=== PATIENT | female | born 1970 | race Caucasian/White ===

== ENCOUNTER → 2016-06-23 | Outpatient (CLI) | payer OTHER ==
--- NOTE | 2016-06-23 09:29 | MA ---
Diagnostic Digital Right Breast Mammogram June 23, 2016 Clinical History: Asymmetric opacities lateral and superior right breast on screening study June 10, 2016. Technique: Spot compression CC and MLO mammograms of the right breast are obtained along with a later al medial mammogram. Findings: The areas of parenchymal asymmetry described on the screening study resolve completely on a dditional spot compression views compatible with superimposed fibroglandular tissue. Impression: Negative additional mammographic views, right breast. BI-RADS 1. Recommendation: Routine annual screening mammography. [facility] will send a result letter to the patient. Negative mammography should not preclude additional workup of a clinically suspicious finding. The patient's information is entered into a reminder system with a target due date for her next mammo gram.
== END ==
LOC: FIMAGING 08:57
PROVIDERS: ATTEND Family Medicine
DX: R92.8 Other abnormal and inconclusive findings on diagnostic imaging of breast (principal)
CPT/HCPCS: G0206

== ENCOUNTER 2016-10-13 09:18 | Emergency (ER) | payer OTHER ==
[2016-10-13 09:24] VITALS: TEMP 97.5
--- NOTE | 2016-10-13 09:36 | CPEKG ---
Heart Rate: 80 RR Interval: 750 P-R Interval: 140 QRSD Interval: 84 QT Interval: 408 QTC Interval: 471 P Makanda: 34 QRS Makanda: 25 T Wave Makanda: 49 EKG Severity - NORMAL ECG - EKG Impression: SINUS RHYTHM Electronically Signed By: Bernardo Garcia 13-Oct-2016 09:47:32
[2016-10-13] MEDS ORDERED: LORazepam 2 MG/ML INJ IVP ONE (10:00)
--- NOTE | 2016-10-13 10:01 | EDPHY ---
H & P Stated Complaint: L shoulder/arm pain. Neg stress test 2 days ago. Source: Patient, Family, Old records - Personal History Current Tetanus Diphtheria and Acellular Pertussis (TDAP): Yes Tetanus Vaccine Date: WITHIN 10 YRS - Medical/Surgical History Hx Asthma: No Hx Chronic Respiratory Disease: No Hx Diabetes: No Hx Cardiac Disease: No Hx Renal Disease: No Hx Cirrhosis: No Hx Alcoholism: No Hx HIV/AIDS: No Hx Splenectomy or Spleen Trauma: No Other PMH: med hx-Hypertension, Colitis ,anxiety. surg-2 c-sect - Social History Smoking Status: Never smoked HPI/ROS: CHIEF COMPLAINT: Chest Pain HISTORY OF PRESENT ILLNESS: Patient complains of chest pain that started 8:00 a.m.. This is a left-sided chest pain. Pxyt-ey-tfkqzkyk pain. Radiates to the left neck, shoulder and arm. Some weakness of the arm. No headache. No neck pain. No abdominal urinary complaints. Some shortness of breath. No changes in vision. No difficulty with her speech. No unilateral complaints otherwise. Some improvement after taking 1 nitro sublingual 8:40 a.m.. Symptoms have improved but not resolved. They were not exertional. She has a history of chest pain over the past 2 months that has been worked up by umbrella mender Dr. Magallon. She is reportedly normal stress test and echo from earlier this week. No other associated complaints or modifying factors FAMILY HISTORY CARDIAC: Paternal grandmother at age 54 from heart attack. PRIOR CARDIAC WORKUP: Treadmill stress test and echo this week REVIEW OF SYSTEMS: Ten systems reviewed and are negative unless otherwise noted in the HPI EXAMINATION: General Appearance: Alert, no distress Head: normocephalic, atraumatic Eyes: Pupils equal and round, no conjunctival pallor or injection ENT, Mouth: Mucous membranes moist. Uvula midline. Neck: Normal inspection, supple, non-tender Respiratory: Lungs are clear to auscultation. No wheezing, rhonchi or crackles. Cardiovascular: Regular rate and rhythm. No murmur. Pulses intact distally. Gastrointestinal: Abdomen is soft and nontender Back: non-tender, no bony abnormalities Neurological: GCS 15. A&O, nonfocal, normal gait Skin: Warm and dry, no rash. No petechiae or purpura. Extremities: Nontender, no pedal edema. DVT examination is negative. Psychiatric: Mood and affect normal DIFFERENTIAL DIAGNOSES: Including but not limited to in no particular order: Acute Chest Pain, ACS, Stable Angina, Pneumonia, PE, duodenitis, gastritis, esophagitis, GERD MDM: 9:50 a.m. Left-sided chest pain that started at a.m.. This was while getting ready for work. It has improved but not resolved. It is not exertional. It does radiate to the left arm, shoulder and neck. Some minimal shortness of breath. Examination is benign. She was mildly tachycardic when I entered the room, but she attributes this to being anxious about the scenario. Vital signs normal I left the room. Stress test and echo earlier this week that we will obtain the results were. 11:00 a.m. Laboratory tests are negative including a negative troponin and negative D- dimer. Chest x-ray is pending. I discussed the case with the on-call umbrella mender Dr. Cosme. Informed him of the patient's history, recent stress test, recent echo and today's laboratory studies. He recommends a 2nd troponin at 3-4 hours from onset of chest pain, based on the time of onset. He does not feel that the patient needs to be admitted from a cardiology standpoint if this is negative. No further recommendations at this time. 11:15 a.m. I have notified the patient's of these findings and the recommendations of umbrella mender. She is comfortable with this plan. 1:30 p.m. Second troponin is negative. This was drawn for 4.5 hours after onset of pain. Patient is feeling well with no pain at this time. Per the recommendation of Cardiology, the patient be discharged home. I do agree that she is stable for discharge home, as does . We discussed return to the emergency department precautions. She is to contact Dr. Magallon for follow-up. She is to her return to the ER for any return of her symptoms. She is comfortable this plan and discharged home stable condition. EKG: Interpreted by Dr. Garcia Normal sinus rhythm. 80 beats per minute. No acute ischemia. SUPERVISION: Patient was evaluated in conjunction with the supervising physician. Please see their note for details. (Panda Baer) Constitutional: Initial Vital Signs Temperature (C) 97.5 F 10/13/16 09:22 Heart Rate 92 10/13/16 09:22 Respiratory Rate 18 10/13/16 09:22 Blood Pressure 141/97 H 10/13/16 09:22 O2 Sat (%) 98 10/13/16 09:22 O2 Delivery Mode Room Air Allergies/Adverse Reactions: Sulfa (Sulfonamide Antibiotics) Allergy (Mild, Verified 03/09/16 18:38) Rash Home Medications: Medication Instructions Recorded Aspirin [Aspirin 81mg (*)] 81 mg PO DAILY 10/13/16 FLUoxetine [PROzac] 10 mg PO 10/13/16 Hydrochlorothiazide [HCTZ (*)] 12.5 mg PO 10/13/16 Medical Decision Making - Diagnostics EKG Interpretation: 12-lead EKG interpreted by me; official reading is in trace master. My interpretation is sinus rhythm rate 80 no acute ischemic changes (Bernardo Garcia) Imaging Results: Imaging Impressions Chest X-Ray 10/13/16 09:50 Impression: No acute abnormality. Other Provider: PHYSICIAN DOCUMENTATION: The patient was evaluated and managed by the Physician Activities Specialist and myself. I have reviewed the chart and agree with the findings and plan of care as documented. In addition, I examined the patient myself at 1005 and 10 50. History confirmed as nontraumatic left-sided chest pain starting 8:00 a.m.. Physical findings as follows: Regular rate and rhythm without murmur. Labs reviewed, plans to discuss with her umbrella mender prior to disposition. I am the secondary supervising physician. (Bernardo Garcia) - Data Points Laboratory Results: Laboratory Results 10/13/16 09:50 10/13/16 09:50 10/13/16 10/13/16 10/13/16 12:37 09:50 09:50 WBC RBC Hgb Hct MCV MCH MCHC RDW Plt Count MPV Neut % (Auto) Lymph % (Auto) Dupage % (Auto) Eos % (Auto) Baso % (Auto) Nucleat RBC Rel Count Absolute Neuts (auto) Absolute Lymphs (auto) Absolute Monos (auto) Absolute Eos (auto) Absolute Basos (auto) Absolute Nucleated RBC Immature Gran % Immature Gran # PT INR APTT D-Dimer Sodium 138 mEq/L mEq/L (134-144) Potassium 3.2 mEq/L L mEq/L (3.5-5.2) Chloride 103 mEq/L mEq/L (97-110) Carbon Dioxide 26 mEq/l mEq/l (22-31) Anion Gap 9 mEq/L mEq/L (8-16) BUN 19 mg/dL mg/dL (7-23) Creatinine 0.7 mg/dL mg/dL (0.6-1.0) Estimated GFR > 60 Glucose 101 mg/dL H mg/dL (70-100) Calcium 9.6 mg/dL mg/dL (8.5-10.4) Troponin I < 0.012 ng/mL ng/mL < 0.012 ng/mL ng/mL (0-0.034) (0-0.034) NT-Pro-B Natriuret Pep 127 pg/mL H pg/mL (0-125) Lipase 94.0 IU/L IU/L (23-300) Beta HCG, Qual NEGATIVE 10/13/16 10/13/16 09:50 09:50 WBC 7.99 10^3/uL 10^3/uL (3.80-9.50) RBC 4.81 10^6/uL 10^6/uL (4.18-5.33) Hgb 14.4 g/dL g/dL (12.6-16.3) Hct 42.7 % % (38.0-47.0) MCV 88.8 fL fL (81.5-99.8) MCH 29.9 pg pg (27.9-34.1) MCHC 33.7 g/dL g/dL (32.4-36.7) RDW 14.3 % % (11.5-15.2) Plt Count 376 10^3/uL 10^3/uL (150-400) MPV 8.8 fL fL (8.7-11.7) Neut % (Auto) 50.5 % % (39.3-74.2) Lymph % (Auto) 35.3 % % (15.0-45.0) Dup[place] % (Auto) 11.5 % % (4.5-13.0) Eos % (Auto) 1.3 % % (0.6-7.6) Baso % (Auto) 1.0 % % (0.3-1.7) Nucleat RBC Rel Count 0.0 % % (0.0-0.2) Absolute Neuts (auto) 4.04 10^3/uL 10^3/uL (1.70-6.50) Absolute Lymphs (auto) 2.82 10^3/uL 10^3/uL (1.00-3.00) Absolute Monos (auto) 0.92 10^3/uL H 10^3/uL (0.30-0.80) Absolute Eos (auto) 0.10 10^3/uL 10^3/uL (0.03-0.40) Absolute Basos (auto) 0.08 10^3/uL 10^3/uL (0.02-0.10) Absolute Nucleated RBC 0.00 10^3/uL 10^3/uL (0-0.01) Immature Gran % 0.4 % % (0.0-1.1) Immature Gran # 0.03 10^3/uL 10^3/uL (0.00-0.10) PT 12.3 SEC SEC (12.0-15.0) INR 0.92 (0.83-1.16) APTT 24.9 SEC SEC (23.0-38.0) D-Dimer < 0.27 ug/mLFEU ug/mLFEU (0.00-0.50) Sodium Potassium Chloride Carbon Dioxide Anion Gap BUN Creatinine Estimated GFR Glucose Calcium Troponin I NT-Pro-B Natriuret Pep Lipase Beta HCG, Qual Medications Given: Discontinued Medications Lorazepam (Ativan Injection) 1 mg IVP EDNOW ONE Stop: 10/13/16 10:01 Last Admin: 10/13/16 10:07 Dose: 1 mg Departure - Departure Disposition: Home, Routine, Self-Care Clinical Impression: Chest pain Qualifiers: Chest pain type: unspecified Qualified Code(s): R07.9 - Chest pain, unspecified Hypertension Qualifiers: Hypertension type: essential hypertension Qualified Code(s): I10 - Essential ( primary) hypertension Condition: Good Instructions: Chest Pain (ED), Hypertension (ED) Additional Instructions: Follow-up with umbrella mender as discussed. Return to ER for any return of symptoms or worsening of symptoms. Referrals: Iliana Mcdonnell MD [Primary Care Provider] - As per Instructions Lashawn Magallon MD [Medical Doctor] - As per Instructions Stand Alone Forms: Airline Excuse
[2016-10-13 10:04] LABS: % IMMATURE GRANULYOCYTES 0.4 % (0.0-1.1); ABSOLUTE IMMATURE GRANULOCYTES 0.03 10^3/uL (0.00-0.10); ADD DIFF? NO; ADD MORPH? NO; ADD SCAN? NO; ATYPICAL LYMPHOCYTE FLAG 20 (0-99); FRAGMENT RBC FLAG 0 (0-99); HEMATOCRIT 42.7 % (38.0-47.0); HEMOGLOBIN 14.4 g/dL (12.6-16.3); LEFT SHIFT FLG 0 (0-99); LIPEMIA HEMOLYSIS FLAG 80 (0-99); MEAN CELL HEMOGLOBIN 29.9 pg (27.9-34.1); MEAN CELL HEMOGLOBIN CONCENTR. 33.7 g/dL (32.4-36.7); MEAN CELL VOLUME 88.8 fL (81.5-99.8); MEAN PLATELET VOLUME 8.8 fL (8.7-11.7); PLATELET CLUMPS FLAG 0 (0-99); PLATELET COUNT 376 10^3/uL (150-400); RED BLOOD CELL COUNT 4.81 10^6/uL (4.18-5.33); RED CELL DISTRIBUTION WIDTH 14.3 % (11.5-15.2)
[2016-10-13 10:20] LABS: INR 0.92 (0.83-1.16); PROTIME(PATIENT) 12.3 SEC (12.0-15.0)
[2016-10-13 10:21] LABS: APTT 24.9 SEC (23.0-38.0)
[2016-10-13 10:31] LABS: ANION GAP 9 mEq/L (8-16); CALCIUM 9.6 mg/dL (8.5-10.4); CARBON DIOXIDE 26 mEq/l (22-31); CHLORIDE 103 mEq/L (97-110); CREATININE 0.7 mg/dL (0.6-1.0); GLOMERULAR FILTRATION RATE > 60; GLUCOSE 101 mg/dL (70-100); POTASSIUM 3.2 mEq/L (3.5-5.2); SODIUM 138 mEq/L (134-144)
[2016-10-13 10:42] LABS: TROPONIN I < 0.012 ng/mL (0-0.034)
[2016-10-13 14:12] VITALS: BP 115/73; PULSE 81; RESP 14; O2SAT 97
== END 2016-10-13 14:11 | disposition home or self-care (01) ==
DX: R07.9 Chest pain, unspecified (principal); I10 Essential (primary) hypertension; Z79.82 Long term (current) use of aspirin
CPT/HCPCS: 96374; J2060

== ENCOUNTER → 2017-07-11 | Outpatient (CLI) | payer OTHER | LOC: FIMAGING 08:16 | PROVIDERS: ATTEND Obstetrics & Gynecology | DX: Z12.31 Encounter for screening mammogram for malignant neoplasm of breast (principal) ==

== ENCOUNTER → 2018-07-16 | Outpatient (CLI) | payer OTHER | LOC: FIMAGING 07:36 | PROVIDERS: ATTEND Obstetrics & Gynecology | DX: Z12.31 Encounter for screening mammogram for malignant neoplasm of breast (principal) ==